=== PATIENT | female | born 1945 | race Caucasian/White ===

== ENCOUNTER 2017-08-10 06:13 | Emergency (ER) | payer MEDICARE, MEDICAID ==
[~2017-08-10] VITALS: Ht 172.7 cm; Wt 97.5 kg
[~2017-08-10 06:13] MED LIST: AMLODIPINE5 MG PO; AVPAK AZITHROM250 M1 PO; Flovent 220 M220 MCG INH; PROAIR HFA0.09 MG/AC INH; ROPINIROLE HY0.25 MG PO; TOPROL XL25 MG PO; TOPROL XL50 MG PO; XARE15TA PO
[2017-08-10] MEDS ORDERED: SEPTDS PO (06:41)
[2017-08-10 07:03] LABS: BASO % 0.2 % (0.0-1.0); EOS # 0.2 10*3/uL (0.0-0.4); EOS % 2.7 % (1.0-4.0); HEMATOCRIT 43.3 % (37.0-47.0); HEMOGLOBIN 14.2 g/dl (12.0-16.0); LYMPH % 17.8 % (27.0-41.0); MEAN CELL VOLUME 95.6 fl (81.0-99.0); MEAN CORPUSCULAR HGB 31.3 pg (27.0-31.0); MEAN CORPUSCULAR HGB CONC 32.8 g/dl (33.0-37.0); MEAN PLATELET VOLUME 9.3 fl (9.6-12.3); MONO # 0.8 10*3/uL (0.1-1.0); MONO % 13.3 % (3.0-9.0); NEUT # 3.7 10*3/uL (2.3-7.9); NEUT % 65.8 % (47.0-73.0); PLATELET COUNT AUTOMATED 146 10*3/uL (130-400); RED BLOOD COUNT 4.53 10*6/uL (4.10-5.10); RED CELL DISTRI WIDTH 14.2 % (0-14.5); WHITE BLOOD COUNT 5.6 10*3/uL (4.8-10.8)
[2017-08-10 07:16] LABS: CREATININE 1.33 mg/dL (0.55-1.02)
== END 2017-08-10 08:45 | disposition home or self-care (01) ==
LOC: ED 06:13
PROVIDERS: Emergency Medicine
DX: R04.0 Epistaxis (principal); J44.1 Chronic obstructive pulmonary disease with (acute) exacerbation; Z79.899 Other long term (current) drug therapy; Z90.710 Acquired absence of both cervix and uterus

== ENCOUNTER 2019-12-16 15:54 | Observation (INO) | payer MEDICARE, MEDICAID ==
[~2019-12-16] VITALS: Ht 172.7 cm; Wt 76.9 kg
[~2019-12-16 15:54] MED LIST changes: +SEPTDS PO
[2019-12-16 16:09] VITALS: BP 162/75
[2019-12-16 17:06] LABS: BASO % 0.2 % (0.0-1.0); EOS # 0.1 10*3/uL (0.0-0.4); EOS % 1.9 % (1.0-4.0); HEMATOCRIT 50.9 % (37.0-47.0); LYMPH # 0.9 10*3/uL (1.3-4.4); LYMPH % 21.1 % (27.0-41.0); MEAN CELL VOLUME 96.2 fl (81.0-99.0); MEAN CORPUSCULAR HGB 30.2 pg (27.0-31.0); MEAN CORPUSCULAR HGB CONC 31.4 g/dl (33.0-37.0); MONO # 0.7 10*3/uL (0.1-1.0); MONO % 16.7 % (3.0-9.0); NEUT # 2.6 10*3/uL (2.3-7.9); NEUT % 59.9 % (47.0-73.0); PLATELET COUNT AUTOMATED 150 10*3/uL (130-400); RED BLOOD COUNT 5.29 10*6/uL (4.10-5.10); WHITE BLOOD COUNT 4.3 10*3/uL (4.8-10.8)
[2019-12-16 17:18] LABS: ACT PARTIAL THROMBO TIME 27.7 SECONDS (20.0-32.1); INTERNATIONAL NORM RATIO 1.1 (2.0-3.5)
[2019-12-16 17:41] LABS: ALBUMIN 3.4 gm/dl (3.1-4.5); ALKALINE PHOSPHATASE 121 U/L (45-117); BUN 13 mg/dl (7-24); CHLORIDE 105 mmol/L (98-107); CREATININE 1.16 mg/dL (0.55-1.02); LIPASE 106 U/L (73-393); POTASSIUM 3.4 mmol/L (3.5-5.1); SGOT/AST 17 IU/L (3-35); SGPT/ALT 12 U/L (12-78); SODIUM 139 mmol/L (136-145); TOTAL PROTEIN 9.1 gm/dL (6.4-8.2)
[2019-12-16 18:30] LABS: TROPONIN I < 0.015 ng/ml (<0.045)
[2019-12-16 18:55] LABS: BILIRUBIN Negative (Negative); BLOOD Negative (Negative); COLOR Yellow (Yellow); GLUCOSE Negative (Negative); KETONE Negative (Negative); LEUKO ESTERASE Trace (Negative); NITRITE Negative (Negative); PH 5.5 (4.5-8.0); SPECIFIC GRAVITY 1.015 (1.001-1.030)
[2019-12-16 19:05] LABS: CLARITY Clear (Clear)
[2019-12-16 19:06] LABS: WBC 0-2 wbc/hpf (0-5)
[2019-12-16] MEDS ORDERED: FAMOTIDINE40 MG PO (22:14)
[2019-12-16] MEDS ORDERED: GABAPENTIN600 MG PO (22:15)
[2019-12-16] MEDS ORDERED: FUROSEMIDE20 M1 PO (22:16)
[2019-12-17] VITALS: BP 146/78
[2019-12-17 00:30] VITALS: BP 196/92
[2019-12-17] MEDS ORDERED: METOPROLOL SUC100 M1 PO (00:53)
[2019-12-17 02:00] VITALS: BP 188/100
[2019-12-17 03:00] VITALS: BP 148/88
[2019-12-17 06:49] LABS: BASO % 0.3 % (0.0-1.0); EOS # 0.1 10*3/uL (0.0-0.4); EOS % 2.2 % (1.0-4.0); HEMATOCRIT 45.5 % (37.0-47.0); LYMPH # 0.9 10*3/uL (1.3-4.4); LYMPH % 23.5 % (27.0-41.0); MEAN CELL VOLUME 95.4 fl (81.0-99.0); MEAN CORPUSCULAR HGB 30.8 pg (27.0-31.0); MEAN CORPUSCULAR HGB CONC 32.3 g/dl (33.0-37.0); MEAN PLATELET VOLUME 10.1 fl (9.6-12.3); MONO # 0.7 10*3/uL (0.1-1.0); MONO % 18.6 % (3.0-9.0); NEUT % 55.1 % (47.0-73.0); PLATELET COUNT AUTOMATED 123 10*3/uL (130-400); RED BLOOD COUNT 4.77 10*6/uL (4.10-5.10); RED CELL DISTRI WIDTH 13.9 % (0-14.5); WHITE BLOOD COUNT 3.6 10*3/uL (4.8-10.8)
[2019-12-17 06:52] LABS: ACT PARTIAL THROMBO TIME 29.3 SECONDS (20.0-32.1); INTERNATIONAL NORM RATIO 1.2 (2.0-3.5)
[2019-12-17 07:05] LABS: CREATININE 1.11 mg/dL (0.55-1.02); POTASSIUM 3.4 mmol/L (3.5-5.1)
[2019-12-17 07:13] LABS: FREE T4 1.16 ng/dl (0.76-1.46); THYROID STIM HORMONE (HS) 2.97 uIU/ml (0.358-4.75); TOTAL PROTEIN 7.8 gm/dL (6.4-8.2)
[2019-12-17 08:08] LABS: VITAMIN D, 25-HYDROXY 36.1 ng/mL (30-100)
[2019-12-17 12:00] VITALS: BP 145/94
[2019-12-17] MEDS ORDERED: LIPITOR10 MG PO (15:40)
[2019-12-17] MEDS ORDERED: ASPIRIN CHEWABL81 M1 PO (15:40)
[2019-12-17] MEDS ORDERED: TOPROL XL100 MG PO (15:40)
[2019-12-17 16:00] VITALS: BP 149/90
== END 2019-12-17 17:57 | disposition home or self-care (01) ==
LOC: ED 15:54 → EDHOLD 18:33 → 5E 23:21
PROVIDERS: Emergency Medicine; Internal Medicine; ADMIT Internal Medicine; ATTEND Internal Medicine
DX: G45.9 Transient cerebral ischemic attack, unspecified (principal); D72.819 Decreased white blood cell count, unspecified; E87.6 Hypokalemia; E83.41 Hypermagnesemia; R74.8 Abnormal levels of other serum enzymes; R79.82 Elevated C-reactive protein (CRP); R79.89 Other specified abnormal findings of blood chemistry; R07.89 Other chest pain; I16.1 Hypertensive emergency; J44.9 Chronic obstructive pulmonary disease, unspecified; I10 Essential (primary) hypertension; G62.9 Polyneuropathy, unspecified; M35.00 Sjogren syndrome, unspecified; Z79.899 Other long term (current) drug therapy

== ENCOUNTER 2021-10-18 07:06 | Inpatient (IN) | payer MEDICARE, MEDICAID ==
[~2021-10-18] VITALS: Ht 172.7 cm; Wt 78.9 kg
[2021-10-18 07:06] VITALS: BP 176/93
[~2021-10-18 07:06] MED LIST changes: +ASPIRIN CHEWABL81 M1 PO; +FAMOTIDINE40 MG PO; +FUROSEMIDE20 M1 PO; +GABAPENTIN600 MG PO; +LIPITOR10 MG PO; +METOPROLOL SUC100 M1 PO; +TOPROL XL100 MG PO
[2021-10-18 09:11] LABS: BASO % 0.2 % (0.0-1.0); EOS # 0.1 10*3/uL (0.0-0.4); EOS % 1.5 % (1.0-4.0); HEMATOCRIT 46.2 % (37.0-47.0); LYMPH # 0.5 10*3/uL (1.3-4.4); LYMPH % 9.2 % (27.0-41.0); MEAN CELL VOLUME 99.4 fl (81.0-99.0); MEAN CORPUSCULAR HGB 31.8 pg (27.0-31.0); MEAN PLATELET VOLUME 9.4 fl (9.6-12.3); MONO # 0.5 10*3/uL (0.1-1.0); MONO % 8.9 % (3.0-9.0); NEUT # 4.2 10*3/uL (2.3-7.9); NEUT % 79.8 % (47.0-73.0); PLATELET COUNT AUTOMATED 121 10*3/uL (130-400); RED BLOOD COUNT 4.65 10*6/uL (4.10-5.10); RED CELL DISTRI WIDTH 13.9 % (0-14.5); WHITE BLOOD COUNT 5.3 10*3/uL (4.8-10.8)
[2021-10-18 09:20] LABS: ACT PARTIAL THROMBO TIME 25.3 SECONDS (20.0-32.1); INTERNATIONAL NORM RATIO 1.1 (2.0-3.5)
[2021-10-18 09:25] LABS: ALKALINE PHOSPHATASE 87 U/L (45-117); BUN 13 mg/dl (7-24); CHLORIDE 105 mmol/L (98-107); CREATININE 0.95 mg/dL (0.55-1.02); LIPASE 90 U/L (73-393); SGOT/AST 16 IU/L (3-35); SGPT/ALT 15 U/L (12-78); SODIUM 141 mmol/L (136-145); TOTAL PROTEIN 7.6 gm/dL (6.4-8.2)
[2021-10-18 09:30] VITALS: BP 179/86
[2021-10-18 11:30] VITALS: BP 160/67
[2021-10-18 14:55] LABS: BILIRUBIN Negative (Negative); BLOOD Trace-Lysed (Negative); CLARITY Clear (Clear); COLOR Dark Yellow (Yellow); GLUCOSE Negative (Negative); KETONE Negative (Negative); LEUKO ESTERASE 1+ (Negative); NITRITE Negative (Negative)
[2021-10-18 15:09] LABS: BACTERIA 2+; HYALINE CAST 0-2
[2021-10-18 15:10] LABS: RBC 0-2 rbc/hpf (0-2)
[2021-10-18 19:47] VITALS: BP 107/43
[2021-10-18 20:00] VITALS: BP 121/86
[2021-10-19] VITALS: BP 143/74
[2021-10-19 07:11] LABS: ACT PARTIAL THROMBO TIME 27.6 SECONDS (20.0-32.1); INTERNATIONAL NORM RATIO 1.2 (2.0-3.5)
[2021-10-19 07:24] LABS: BUN 13 mg/dl (7-24); CHLORIDE 106 mmol/L (98-107); CREATININE 0.79 mg/dL (0.55-1.02); POTASSIUM 3.8 mmol/L (3.5-5.1); SGOT/AST 19 IU/L (3-35); SGPT/ALT 14 U/L (12-78); SODIUM 139 mmol/L (136-145)
[2021-10-19 07:32] LABS: ALKALINE PHOSPHATASE 86 U/L (45-117); CHOLESTEROL 119 mg/dL (<200); FREE T4 1.35 ng/dl (0.76-1.46); LDL CHOLESTEROL 58 mg/dL (9-159); TOTAL PROTEIN 7.2 gm/dL (6.4-8.2); TRIGLYCERIDES 76 mg/dl (<150)
[2021-10-19 07:35] LABS: BASO % 0.3 % (0.0-1.0); EOS # 0.2 10*3/uL (0.0-0.4); HEMATOCRIT 44.1 % (37.0-47.0); LYMPH # 0.6 10*3/uL (1.3-4.4); LYMPH % 14.8 % (27.0-41.0); MEAN CELL VOLUME 99.3 fl (81.0-99.0); MEAN CORPUSCULAR HGB CONC 32.2 g/dl (33.0-37.0); MEAN PLATELET VOLUME 10.2 fl (9.6-12.3); MONO # 0.4 10*3/uL (0.1-1.0); MONO % 11.6 % (3.0-9.0); NEUT # 2.6 10*3/uL (2.3-7.9); PLATELET COUNT AUTOMATED 107 10*3/uL (130-400); RED BLOOD COUNT 4.44 10*6/uL (4.10-5.10); WHITE BLOOD COUNT 3.8 10*3/uL (4.8-10.8)
[2021-10-19 08:00] VITALS: BP 136/62
[2021-10-19 12:00] VITALS: BP 130/55
[2021-10-19 16:00] VITALS: BP 119/53
[2021-10-19 20:00] VITALS: BP 190/85
[2021-10-20] VITALS: BP 152/62
[2021-10-20 08:00] VITALS: BP 179/86
[2021-10-20 12:00] VITALS: BP 121/50
[2021-10-20 16:00] VITALS: BP 126/56
[2021-10-20 20:00] VITALS: BP 193/83
[2021-10-20 21:00] VITALS: BP 115/69
[2021-10-21] VITALS: BP 130/64
[2021-10-21 08:00] VITALS: BP 160/85
[2021-10-21 12:00] VITALS: BP 143/68
[2021-10-21 16:00] VITALS: BP 136/89
[2021-10-21 20:00] VITALS: BP 154/86
[2021-10-22] VITALS: BP 148/63
[2021-10-22 08:00] VITALS: BP 157/72
[2021-10-22 08:35] VITALS: BP 151/72
[2021-10-22] MEDS ORDERED: VITAMIN D350 MC2 PO (11:03)
[2021-10-22 12:16] VITALS: BP 167/70
[2021-10-22 15:52] LABS: ABG BASE EXCESS 1.1 mmol/L (-2.0-2.0); ARTERIAL BLOOD GAS PH 7.424 (7.35-7.45); ARTERIAL BLOOD GAS PO2 65.5 (80-90)
[2021-10-22 16:00] VITALS: BP 108/41; BP 132/71
[2021-10-22 20:00] VITALS: BP 137/69
[2021-10-23] VITALS: BP 151/66
[2021-10-23 05:52] LABS: ALKALINE PHOSPHATASE 80 U/L (45-117); BUN 10 mg/dl (7-24); CHLORIDE 105 mmol/L (98-107); CREATININE 0.77 mg/dL (0.55-1.02); POTASSIUM 3.8 mmol/L (3.5-5.1); SGOT/AST 18 IU/L (3-35); SGPT/ALT 14 U/L (12-78); SODIUM 136 mmol/L (136-145); TOTAL PROTEIN 7.1 gm/dL (6.4-8.2)
[2021-10-23 06:08] LABS: BASO % 0.6 % (0.0-1.0); EOS # 0.3 10*3/uL (0.0-0.4); EOS % 8.9 % (1.0-4.0); HEMATOCRIT 41.5 % (37.0-47.0); LYMPH # 0.6 10*3/uL (1.3-4.4); LYMPH % 18.7 % (27.0-41.0); MEAN CELL VOLUME 100.7 fl (81.0-99.0); MEAN CORPUSCULAR HGB 31.8 pg (27.0-31.0); MEAN CORPUSCULAR HGB CONC 31.6 g/dl (33.0-37.0); MEAN PLATELET VOLUME 10.2 fl (9.6-12.3); MONO # 0.6 10*3/uL (0.1-1.0); MONO % 18.1 % (3.0-9.0); NEUT # 1.7 10*3/uL (2.3-7.9); NEUT % 53.4 % (47.0-73.0); PLATELET COUNT AUTOMATED 108 10*3/uL (130-400); RED BLOOD COUNT 4.12 10*6/uL (4.10-5.10); RED CELL DISTRI WIDTH 14.2 % (0-14.5); WHITE BLOOD COUNT 3.2 10*3/uL (4.8-10.8)
[2021-10-23 08:00] VITALS: BP 137/60
[2021-10-23 12:00] VITALS: BP 153/68
[2021-10-23 16:00] VITALS: BP 141/62
[2021-10-23] MEDS ORDERED: CEFTRIAXONE1 G1 IV (18:15)
[2021-10-23 19:50] VITALS: BP 172/80
[2021-10-23 20:00] VITALS: BP 172/80
== END 2021-10-23 21:05 | disposition short-term general hospital (02) | DRG 562 ==
LOC: ED 07:06 → 4E 11:05 → EDHOLD 11:05 → 4E 11:05 → EDHOLD 11:05 → 4E 18:46 → ICCU 10-23 19:57
PROVIDERS: Emergency Medicine; Student in an Organized Health Care Education/Training Program; ADMIT Internal Medicine; ATTEND Internal Medicine
PROC: 5A0935A Assistance with Respiratory Ventilation, Less than 24 Consecutive Hours, High Flow/Velocity Cannula (ICD-10-PCS; principal; 2021-10-18)
DX: S42.294A Other nondisplaced fracture of upper end of right humerus, initial encounter for closed fracture (principal); I26.09 Other pulmonary embolism with acute cor pulmonale; J96.00 Acute respiratory failure, unspecified whether with hypoxia or hypercapnia; N39.0 Urinary tract infection, site not specified; E44.0 Moderate protein-calorie malnutrition; I65.23 Occlusion and stenosis of bilateral carotid arteries; M35.00 Sjogren syndrome, unspecified; Z20.822 Contact with and (suspected) exposure to COVID-19; S09.90XA Unspecified injury of head, initial encounter; R26.2 Difficulty in walking, not elsewhere classified; G62.9 Polyneuropathy, unspecified; I10 Essential (primary) hypertension; J44.9 Chronic obstructive pulmonary disease, unspecified; D53.9 Nutritional anemia, unspecified; E87.6 Hypokalemia; Z87.891 Personal history of nicotine dependence; Z86.73 Personal history of transient ischemic attack (TIA), and cerebral infarction without residual deficits; Z90.49 Acquired absence of other specified parts of digestive tract; Z68.26 Body mass index [BMI] 26.0-26.9, adult; W18.39XA Other fall on same level, initial encounter; Y93.89 Activity, other specified; Y92.89 Other specified places as the place of occurrence of the external cause; Y99.8 Other external cause status